=== PATIENT | male | born 1940 | race Caucasian/White ===

== ENCOUNTER → 2017-01-26 | Outpatient (REF) | payer SELFPAY | LOC: M LAB REF 17:13 | PROVIDERS: ATTEND Internal Medicine Nephrology | DX: E03.9 Hypothyroidism, unspecified (principal); E11.22 Type 2 diabetes mellitus with diabetic chronic kidney disease; I10 Essential (primary) hypertension ==

== ENCOUNTER → 2018-11-23 | Outpatient (REF) | payer SELFPAY | LOC: M LAB REF 17:22 | PROVIDERS: ATTEND Internal Medicine Nephrology | DX: E03.9 Hypothyroidism, unspecified (principal); I10 Essential (primary) hypertension; E11.22 Type 2 diabetes mellitus with diabetic chronic kidney disease ==

== ENCOUNTER → 2019-05-27 | Outpatient (REF) | payer SELFPAY | LOC: M LAB REF 16:35 | PROVIDERS: ATTEND Internal Medicine Nephrology | DX: E03.9 Hypothyroidism, unspecified (principal); I10 Essential (primary) hypertension; E11.22 Type 2 diabetes mellitus with diabetic chronic kidney disease ==

== ENCOUNTER → 2019-07-29 | Outpatient (REF) | payer SELFPAY | LOC: M LAB REF 17:01 | PROVIDERS: ATTEND Internal Medicine Nephrology | DX: E03.9 Hypothyroidism, unspecified (principal); I10 Essential (primary) hypertension; E11.22 Type 2 diabetes mellitus with diabetic chronic kidney disease ==

== ENCOUNTER 2019-12-13 16:52 | Emergency (ER) | payer SELFPAY ==
[~2019-12-13] VITALS: Ht 177.8 cm; Wt 102.6 kg
[2019-12-13] MEDS ORDERED: INSUDET SC (17:22)
[2019-12-13] MEDS ORDERED: NOVOINJ SC (17:22)
[2019-12-13] MEDS ORDERED: CALC1CAP31 (17:22)
[2019-12-13] MEDS ORDERED: ASPI81CH33 PO (17:22)
[2019-12-13] MEDS ORDERED: LEVO175T2 PO (17:22)
[2019-12-13] MEDS ORDERED: TORS100T PO (17:22)
[2019-12-13] MEDS ORDERED: GLIP5TAB20 PO (17:22)
[2019-12-13] MEDS ORDERED: ALLO10TA PO (17:22)
[2019-12-13] MEDS ORDERED: MINO2.5T PO (17:22)
[2019-12-13 18:19] LABS: BASO % 0.2 % (0.0-1.0); EOS # 0.5 10^3/uL (0.0-0.5); EOS % 6.1 % (0.0-3.0); HEMATOCRIT 40.4 % (42.0-52.0); HEMOGLOBIN 13.3 g/dl (13.5-17.5); LYMPH # 1.6 10^3/uL (1.5-5.0); LYMPH % 17.8 % (24.0-44.0); MEAN CORPUSCULAR HEMOGLOBIN 29.1 pg (27.0-33.0); MEAN CORPUSCULAR HGB CONC 32.9 g/dl (32.0-36.5); MEAN CORPUSCULAR VOLUME 88.4 fl (80.0-96.0); MONO # 0.6 10^3/uL (0.0-0.8); MONO % 6.3 % (0.0-5.0); NEUTROPHILS # 6.2 10^3/uL (1.5-8.5); NEUTROPHILS % 69.3 % (36.0-66.0); PLATELET COUNT, AUTOMATED 283 10^3/uL (150-450); RED BLOOD COUNT 4.57 10^6/uL (4.30-6.10); WHITE BLOOD COUNT 8.9 10^3/uL (4.0-10.0)
[2019-12-13 18:30] LABS: C REACTIVE PROTEIN QUANTITATIV 2.14 MG/DL (0.00-0.30); CALCIUM LEVEL 9.6 MG/DL (8.8-10.2); CREATININE FOR GFR 3.64 MG/DL (0.70-1.30); GLOMERULAR FILTRATION RATE 17.4 (>42); POTASSIUM SERUM 4.6 MEQ/L (3.5-5.1)
--- NOTE | 2019-12-13 18:33 | REP ---
Clinical: Swelling. Decreased range of motion. Technique: AP, lateral, bilateral oblique views of the left elbow. Findings: Significant, primarily posterior soft tissue swelling suggesting bursitis. Calcification of the tendinous insertion on the posterior aspect of the ulna suggest chronic tendinopathy. No acute fracture or dislocation identified. Impression: Soft tissue swelling suggesting bursitis. No acute fracture or dislocation. Electronically Signed by Len Gilbert MD 12/13/2019 06:25 P
[2019-12-13 18:40] LABS: ERYTHROCYTE SEDIMENTATION RATE 72 mm/hr (0-20)
--- NOTE | 2019-12-13 19:47 | REPVR ---
PROCEDURE INFORMATION: Exam: US Duplex Left Upper Extremity Veins, Limited Exam date and time: 12/13/2019 7:34 PM Age: 79 years old Clinical indication: Edema, localized; Upper extremity, left; Additional info: Lue swelling, R/O dvt TECHNIQUE: Imaging protocol: Real-time Duplex ultrasound of the Left Upper Extremity with 2-D rincon scale, color Doppler flow and spectral waveform analysis with image documentation. Limited exam focused on the left upper extremity veins. COMPARISON: No relevant prior studies available. FINDINGS: Left deep veins: Internal jugular, subclavian, axillary and brachial veins patent without thrombus. Normal compressibility, augmentation response and/or Doppler waveforms. Left superficial veins: Visualized cephalic and basilic veins patent without thrombus. Soft tissues: Subcutaneous edema. IMPRESSION: No sonographic evidence of deep vein thrombosis. Electronically signed by: Bharat Haro On 12/13/2019 19:47:07 PM
[2019-12-13 21:08] VITALS: BP 158/92
== END 2019-12-13 21:14 | disposition home or self-care (01) ==
LOC: M ED 16:52
DX: M70.22 Olecranon bursitis, left elbow (principal); S40.022A Contusion of left upper arm, initial encounter; N18.9 Chronic kidney disease, unspecified; X58.XXXA Exposure to other specified factors, initial encounter; Y92.9 Unspecified place or not applicable; Y93.9 Activity, unspecified; Y99.9 Unspecified external cause status; E11.40 Type 2 diabetes mellitus with diabetic neuropathy, unspecified; I10 Essential (primary) hypertension; Z86.73 Personal history of transient ischemic attack (TIA), and cerebral infarction without residual deficits; E03.9 Hypothyroidism, unspecified; M10.9 Gout, unspecified; Z99.89 Dependence on other enabling machines and devices; Z79.82 Long term (current) use of aspirin; Z79.4 Long term (current) use of insulin; Z79.899 Other long term (current) drug therapy

== ENCOUNTER → 2020-02-18 | Outpatient (REF) | payer SELFPAY ==
[~2020-02-18] MED LIST: ALLO10TA PO; ASPI81CH33 PO; CALC1CAP31; GLIP5TAB20 PO; INSUDET SC; LEVO175T2 PO; MINO2.5T PO; NOVOINJ SC; TORS100T PO
== END ==
LOC: M LAB REF 19:03
PROVIDERS: ATTEND Internal Medicine Nephrology
DX: E03.9 Hypothyroidism, unspecified (principal); I12.9 Hypertensive chronic kidney disease with stage 1 through stage 4 chronic kidney disease, or unspecified chronic kidney disease; E11.22 Type 2 diabetes mellitus with diabetic chronic kidney disease; N18.9 Chronic kidney disease, unspecified

== ENCOUNTER → 2020-05-01 | Outpatient (CLI) | payer SELFPAY ==
--- NOTE | 2020-05-01 15:20 | REP ---
INDICATION: CHEST PAIN ON BREATHING. COMPARISON: No comparison study. TECHNIQUE: Two views.. FINDINGS: There is a coarse linear opacity in the left base consistent with platelike atelectasis. The lungs are otherwise well inflated and clear. Mild cardiomegaly is observed. The thoracic aorta is tortuous. Pleural angles are sharp. No acute bony abnormality. IMPRESSION: Coarse linear platelike atelectasis left base laterally. Tortuous thoracic aorta. Otherwise no acute disease.. <Electronically signed by Wood Robles > 05/01/20 0125
== END ==
LOC: M RAD 13:31
PROVIDERS: ATTEND Internal Medicine Nephrology
DX: R07.1 Chest pain on breathing (principal); J98.11 Atelectasis

== ENCOUNTER → 2020-09-24 | Outpatient (REF) | payer SELFPAY | LOC: M LAB REF 16:55 | PROVIDERS: ATTEND Internal Medicine Nephrology | DX: E03.9 Hypothyroidism, unspecified (principal); I10 Essential (primary) hypertension; E11.22 Type 2 diabetes mellitus with diabetic chronic kidney disease ==

== ENCOUNTER 2020-11-01 09:22 | Inpatient (IN) | payer SELFPAY ==
[2020-11-01] VITALS (8 sets, daily range): BP systolic 105–189; BP diastolic 52–94; O2SAT 94
[~2020-11-01] VITALS: Ht 180.3 cm; Wt 99.4 kg
[~2020-11-01 09:22] MED LIST changes: -CALC1CAP31; +CALC1CAP31 PO; +ENOXAPARIN 60MG/0.6ML SYRINGE (J1650 PER 10MG) SC SCH
[2020-11-01] MEDS ORDERED: AZITHROMYCIN INJ 500 MG, VIAL MATE ADAPTER 1 EACH in NS 250 ML IV ONE (10:10)
[2020-11-01] MEDS ORDERED: cefTRIAXone SOD 1 GM in D5W MINI-BAG PLUS 50 ML IV ONE (10:10)
--- NOTE | 2020-11-01 10:18 | REP ---
INDICATION: DYSPNEA/COUGH. COMPARISON: 05/01/2020. TECHNIQUE: Single portable AP view of the chest was performed. FINDINGS: There are bilateral infiltrates, with consolidative opacities peripherally in the right upper lobe and in the left lung base.The heart is enlarged. The mediastinal silhouette is unremarkable except for some mild calcification of the thoracic aorta. There may be a small left pleural effusion. IMPRESSION: Peripheral consolidative infiltrates in the right upper and left lower lung zones. Possible small left effusion. Cardiomegaly. <Electronically signed by Jamal Jackson > 11/01/20 [id number]
[2020-11-01 10:37] LABS: BASO % 0.1 % (0.0-1.0); EOS % 0.1 % (0.0-3.0); HEMATOCRIT 35.3 % (42.0-52.0); HEMOGLOBIN 11.6 g/dl (13.5-17.5); LYMPH # 0.8 10^3/uL (1.5-5.0); LYMPH % 8.7 % (24.0-44.0); MEAN CORPUSCULAR HEMOGLOBIN 29.4 pg (27.0-33.0); MEAN CORPUSCULAR HGB CONC 32.9 g/dl (32.0-36.5); MEAN CORPUSCULAR VOLUME 89.6 fl (80.0-96.0); MONO # 0.5 10^3/uL (0.0-0.8); MONO % 5.5 % (2.0-8.0); NEUTROPHILS # 7.5 10^3/uL (1.5-8.5); NEUTROPHILS % 84.9 % (36.0-66.0); PLATELET COUNT, AUTOMATED 248 10^3/uL (150-450); RED BLOOD COUNT 3.94 10^6/uL (4.30-6.10); WHITE BLOOD COUNT 8.9 10^3/uL (4.0-10.0)
[2020-11-01] MEDS ORDERED: ZYLO300T6 PO (10:44)
[2020-11-01 10:47] LABS: INR 1.04; PROTHROMBIN TIME 13.8 SECONDS (12.5-14.3)
[2020-11-01 10:48] LABS: PARTIAL THROMBOPLASTIN TIME 46.8 SECONDS (24.2-38.5)
[2020-11-01 10:51] LABS: D-DIMER QUANT 2605.06 ng/ml (<500)
[2020-11-01 11:20] LABS: ALBUMIN 2.5 GM/DL (3.2-5.2); ALT/SGPT 65 U/L (12-78); BILIRUBIN,DIRECT < 0.1 MG/DL (0.0-0.2); BILIRUBIN,TOTAL 0.3 MG/DL (0.2-1.0); BLOOD UREA NITROGEN 85 MG/DL (7-18); CALCIUM LEVEL 8.8 MG/DL (8.8-10.2); CARBON DIOXIDE LEVEL 25 MEQ/L (21-32); CHLORIDE LEVEL 102 MEQ/L (98-107); CREATININE FOR GFR 6.91 MG/DL (0.70-1.30); FERRITIN 1568 NG/ML (26-388); GLOMERULAR FILTRATION RATE 8.3 (>42); GLUCOSE, FASTING 58 MG/DL (70-100); LDH LACTATE DEHYDROGENASE 358 U/L (87-241); MAGNESIUM LEVEL 3.1 MG/DL (1.8-2.4); NT-PRO BNP 6423 PG/ML (<450); POTASSIUM SERUM 4.2 MEQ/L (3.5-5.1); SODIUM LEVEL 134 MEQ/L (136-145); TOTAL PROTEIN 7.4 GM/DL (6.4-8.2)
[2020-11-01] MEDS ORDERED: NS 1,000 ML IV SCH (11:25)
[2020-11-01] MEDS ORDERED: DEXTROSE 50% 50 ML SYRINGE IV PRN (11:40)
[2020-11-01] MEDS ORDERED: GLUCOSE 4GM CHEW TABLET PO PRN (11:40)
[2020-11-01] MEDS ORDERED: GLUCAGON INJ 1MG VIAL SC PRN (11:40)
[2020-11-01] MEDS ORDERED: MAGN500T12 PO (11:44)
[2020-11-01] MEDS: ASPIRIN 81MG ENTERIC TABLET PO SCH (11:59)
[2020-11-01] MEDS: dexameTHASONE 4 MG/ML 1ML VIAL (J1100 PER 1MG) IV SCH (11:59)
[2020-11-01] MEDS: HumaLOG INSULIN (NovoLOG) PER UNIT SC SCH ×3 (12:00→20:19)
--- NOTE | 2020-11-01 13:44 | HPEPDOC ---
[facility] Medical History & Physical Date of Admission November 01, 2020 Date of Service: November 01, 2020 History and Physical CHIEF COMPLAINT: shortness of breath HISTORY OF PRESENT ILLNESS: 80 year old male for two week history of general malaise and myalgias. Over the last week he has developed progressively worsening shortness of breath. Denies chest pain, abdominal pain, N/V/D. Past medical history as per patient diabetes, and chronic kidney disease. 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 REVIEW OF SYSTEMS: Negative except as per HPI. HOME MEDICATIONS: Please see below. PHYSICAL EXAMINATION: VITAL SIGNS: See below General: NAD, lying comfortably in bed HEENT: NC/AT, EOMI Lungs: diminished breath sounds b/l, difficult to auscultate Heart: +S1S2 Abd: soft, NT, +BS Ext: +1 peripheral edema LABORATORY DATA: See below. MICROBIOLOGY: Please see below. A/P: 80 yo male presents for one week history of worsening shortness of breath, found to be COVID+, admitted for acute hypoxic respiratory failure with acute/chronic kidney disease. #COVID/acute hypoxic respiratory failure - supplemental oxygen - dexamethasone, remdesevir - intermediate therapeutic anticoagulation dosing - adjusted to heparin - possible secondary bacterial infection - ceftriaxone/azithromycin, check MRSA screen/procal - d/w pulm - assistance appreciated - echocardiogram #SUNITA/CKD - discussed with nephrology - established patient with CKD IV-V - lasix 80 IV x 1 #DM - insulin sliding scale #DVT prophylaxis - as per above - intermediate therapeutic anti-coagulation Dispo: admitted to ICU, attempted to call his x3, no answer/voicemail was full. Vital Signs Vital Signs Date Time Temp Pulse Resp B/P (MAP) Pulse Ox O2 Delivery O2 Flow Rate FiO2 11/01/20 13:00 98.3 77 18 127/65 (85) 96 High Flow Cannula 11/01/20 10:28 40.0 100 Laboratory Data Labs 24H Laboratory Tests 2 11/01/20 09:56: POC pH (Misc Panel) 7.342L, POC Base Excess (Misc Panel) -4.0L, POC Saturated Percent O2 (Misc) 82L, POC pO2 (Misc Panel) 49.0*L, POC pCO2 (Misc Panel) 40.6, POC HCO3 (Misc Panel) 22.0, POC Total CO2 (Misc Panel) 23.0 11/01/20 10:23: Immature Granulocyte % (Auto) 0.7, Neutrophils (%) (Auto) 84.9H, Lymphocytes (%) (Auto) 8.7L, Monocytes (%) (Auto) 5.5, Eosinophils (%) (Auto) 0.1, Basophils (%) (Auto) 0.1, Neutrophils # (Auto) 7.5, Lymphocytes # (Auto) 0.8L, Monocytes # (Auto) 0.5, Eosinophils # (Auto) 0.0, Basophils # (Auto) 0.0, Nucleated Red Blood Cells % (auto) 0.0, Prothrombin Time 13.8, Prothromb Time International Ratio 1.04, Activated Partial Thromboplast Time 46.8H, Fibrinogen 830H, D-Dimer, Quantitative 2605.06H, Anion Gap 7L, Glomerular Filtration Rate 8.3L, Lactic Acid Level 0.6, Calcium Level 8.8, Magnesium Level 3.1H, Ferritin 1568H, Total Bilirubin 0.3, Direct Bilirubin < 0.1, Aspartate Amino Transf (AST/SGOT) 72H, Alanine Aminotransferase (ALT/SGPT) 65, Alkaline Phosphatase 54, Lactate Dehydrogenase 358H, C-Reactive Protein, Quantitative 24.80H, YZ-Waj-J-Type Natriuretic Peptide 6423H, Total Protein 7.4, Albumin 2.5L, Albumin/Globulin Ratio 0.5, Thyroid Stimulating Hormone (TSH) 3.610 11/01/20 10:28: POC Total CO2 (Misc Panel) 25.0, POC Glucose (Misc Panel) 59L, POC Sodium (Misc Panel) 134L, POC Potassium (Misc Panel) 4.1, POC Chloride (Misc Panel) 101, POC Blood Urea Nitrogen (Misc Panel 86H, POC Ionized Calcium (Misc Panel) 4.6, POC Creatinine (Misc Panel) 8.0H, POC Hematocrit (Misc Panel) 35.0L 11/01/20 10:47: POC Troponin I (Misc) 0.19H 11/01/20 12:03: Bedside Glucose (Misc Panel) 53L 11/01/20 12:25: Bedside Glucose (Misc Panel) 56L 11/01/20 12:31: Bedside Glucose (Misc Panel) 58L 11/01/20 13:11: Bedside Glucose (Misc Panel) 95 CBC/BMP Laboratory Tests 11/01/20 10:23 Microbiology Microbiology 11/01/20 Blood Culture, Received Pending 11/01/20 Blood Culture, Received Pending 11/01/20 Respiratory Virus Panel (PCR) ([facility]) - Final, Complete SARS-CoV-2 (COVID 19) Human Rhinovirus/Enterovirus Home Medications Scheduled Allopurinol (Zyloprim) 300 Mg Tablet, 300 MG PO DAILY Aspirin (Aspirin) 81 Mg Tab.chew, 81 MG PO DAILY Calcitriol (Calcitriol) 0.25 Mcg Capsule, 0.25 MCG PO DAILY Glipizide (Glipizide ER) 5 Mg Tab.er.24, 5 MG PO DAILY Insulin Aspart (Novolog) 100 Unit/1 Ml Cartridge, 20 UNITS SC TID Insulin Detemir (Levemir) 100 Unit/1 Ml Vial, 60 UNITS SC QPM Levothyroxine Sodium (Levothyroxine Sodium) 175 Mcg Tablet, 175 MCG PO DAILY Magnesium Oxide (Magnesium Oxide) 500 Mg Tablet, 500 MG PO BID Minoxidil (Minoxidil) 2.5 Mg Tablet, 2.5 MG PO BID Torsemide (Torsemide) 100 Mg Tablet, 150 MG PO DAILY Allergies Coded Allergies: No Known Allergies (Unverified , 12/13/19) A-FIB/CHADSVASC A-FIB History Current/History of A-Fib/PAF?: No RENEE ALLEN MD November 01, 2020 13:44
[2020-11-01] MEDS: LEVOTHYROXINE 25MCG TABLET (0.025MG) PO SCH (14:03)
[2020-11-01] MEDS: LEVOTHYROXINE 150MCG TABLET (0.15MG) PO SCH (14:03)
[2020-11-01] MEDS: CALCITRIOL 0.25 MCG CAP (S0169) PO SCH (14:36)
[2020-11-01 14:52] LABS: APPEARANCE, URINE HAZY (CLEAR); BACTERIA, URINE AUTO 1+ (NEGATIVE); BILIRUBIN, URINE AUTO NEGATIVE (NEGATIVE); BLOOD, URINE BLOOD 2+ (NEGATIVE); COLOR, URINE YELLOW (YELLOW); GLUCOSE, URINE (UA) AUTO 1+ mg/dL (NEGATIVE); KETONE, URINE AUTO TRACE mg/dL (NEGATIVE); LEUKOCYTE ESTERASE, URINE AUTO NEGATIVE (NEGATIVE); NITRITE, URINE AUTO NEGATIVE (NEGATIVE); PROTEIN, URINE AUTO 3+ mg/dL (NEGATIVE); RBC, URINE AUTO 137 /HPF (0-3); SPECIFIC GRAVITY URINE AUTO 1.017 (1.002-1.035); SQUAMOUS EPITHELIAL CELL UR AU 0 /HPF (0-6); UROBILINOGEN, URINE AUTO 0.2 mg/dL (0.0-2.0); WBC, URINE AUTO 4 /HPF (0-3)
[2020-11-01] MEDS ORDERED: FUROSEMIDE 100MG/10ML VIAL (J1940) IV ONE (15:30)
[2020-11-01] MEDS ORDERED: REMDESIVIR 200 MG in NS 250 ML IV ONE (16:00)
--- NOTE | 2020-11-01 17:27 | CR ---
CRITICAL CARE CONSULTATION DATE: 11/01/2020 CHIEF COMPLAINT: Shortness of breath. HISTORY OF PRESENT ILLNESS: The history was obtained from the patient and from the chart for collateral as he was tachypneic and on BIPAP, somewhat difficult to provide a full history. The patient is a 80-year-old male with a past medical history of diabetes, chronic kidney disease, and gout who presented with complaints of worsening shortness of breath. The patient reported over the past 2 weeks he was having symptoms of myalgias and general malaise. Over the past week however he started developing worsening shortness of breath as well as some occasional cough with scant mucous production. He presented to the E.D. because of his worsening shortness of breath and dyspnea. He had denied any significant chest pain except occasionally when he was coughing. He had denied any significant abdominal pain. No nausea or vomiting. He does have a history of some lower extremity edema and he is on a diuretic as an outpatient. He does report for the past week that he has noticed less urine output from usual. He had been drinking plenty of water he states, as he generally does like to drink water and he states quite a bit in the evening. He also had been taking wqkw-mxb-wuacwwy medications given his malaise and myalgias. He was taking Tylenol and Ibuprofen which he reports as two pills at a time and every 6 hours for the last week or two. The patient reports generally that he is compliant with his medications, although he was unable to clearly remember which medications he takes. PAST MEDICAL/SURGICAL HISTORY: The patient's past medical/surgical history is significant for: 1. Diabetes. 2. 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 Sprague. 3. Hypothyroidism. FAMILY HISTORY: Noncontributory. SOCIAL HISTORY: The patient denies a history of tobacco use. No significant alcohol use or illicit drug use. He is a [employer]. MEDICATIONS: 1. Allopurinol. 2. Aspirin. 3. Calcitriol. 4. Glipizide. 5. NovoLog. 6. Levemir. 7. Levothyroxine. 8. Magnesium Oxide. 9. Minoxidil. 10. Torsemide. ALLERGIES: No known drug allergies. PHYSICAL EXAMINATION: VITAL SIGNS: Temperature 99.1, pulse 90, respirations 24, blood pressure was 170/76, O2 sat was 93% on Vapotherm at 40 liters a minute and 100% FiO2. GENERAL APPEARANCE: The patient is an obese male, is lying in the bed, appears somewhat drowsy but is arousable and answering questions appropriately. He is alert and oriented x2. He does have some tachypnea and is using some accessory muscles for respiration. HEENT: Normocephalic and atraumatic. Moist mucous membranes noted. NECK: Supple. Trachea is midline. Positive jugular venous distention. CARDIAC: Somewhat distant heart sounds, regular rate and rhythm. Normal S1, S2, unable to clearly auscultate any murmurs. LUNGS: Diminished breath sounds bilaterally with a few crackles on the left base. ABDOMEN: Obese, soft, nondistended with mild tenderness in the suprapubic region. EXTREMITIES: There is +1 pitting lower extremity edema with the right leg slightly more than the left which he states is chronic. LABORATORY DATA: WBC 8.9, hemoglobin 11.6, platelets are 218. Chemistries - sodium is 134, potassium 4.2, chloride is 102, bicarbonate is 25, BUN 85, creatinine 6.91, glucose is 58, lactic acid was 0.6, magnesium is 2.1. AST ALT 72 and 65, alkaline phosphatase is 54, ferratin is 1658. LDH is 358, CRP is 24.8, BNP was 6423. albumin is 2.5. INR was 1.04, D-dimer is 2605. Troponin is 0.19. ABG: PH 7.342, pco2 of 40.6, pO2 of 48. Microbiology blood culture is pending. Respiratory virus panel positive for COVID-19 and human rhinovirus/enterovirus. IMAGING DATA: Chest x-ray on admission showed a right upper lobe opacity and a left lower lobe opacity with a very trace small trace left pleural effusion. There are also some increased interstitial markings noted mostly on the rest of the right lung. There is cardiomegaly. ASSESSMENT AND PLAN: Mr. June is a 80-year-old male with a past medical history of diabetes, hypothyroidism, chronic kidney disease, who presented with complaints of worsening shortness of breath and dyspnea on exertion. The patient was found on admission to be hypoxemic respiratory failure and was COVID-19 as well as human rhinovirus/enterovirus positive. The patient was placed on Vapotherm and was requiring 100% FiO2 at 40 liters a minute to maintain his oxygenation. He was also found to have acute kidney injury on his baseline chronic kidney disease. Given his oxygen requirements, he was transferred to the ICU for further evaluation. He did receive broad spectrum antibiotics initially in the E.D. and was initially started on IV fluids. With his assessment however, particularly with the lower extremity edema as well as with elevated BNP, and his significant hypoxic respiratory failure, we discontinued his IV fluids. 1. Acute hypoxemic respiratory failure in the setting of COVID-19 pneumonia with possible superimposed bacterial pneumonia. We will start the patient on BIPAP to help with oxygenation as well as to help with likely some degree of atelectasis. We will also transition between Vapotherm and BIPAP. He is on settings of 11/7 and on the BIPAP was able to wean down to 75% FiO2. We will continue to wean down FiO2 as tolerated to maintain 02 sat above 90%. We will continue the patient on Dexamethasone and Remdesivir for his COVID-19 pneumonia. We will also continue to monitor his inflammatory markers and consider Tocilizumab if he does have evidence of cytokine storm. We will continue with broad spectrum antibiotics for possible superimposed community acquired pneumonia with Ceftriaxone and Azithromycin and will follow up results of his blood cultures. Given his elevated D-dimer and pro inflammatory state, we will continue with weight based prophylaxis as he is also obese, with Heparin but with a slightly higher dose of 75,000 units subcutaneously q. 8 hours. 2. Uqfqi-fg-avcmkhj renal failure the patient's baseline creatinine was 4 and with a baseline GFR of 15. There had been discussions previously with his case monitor about the potential need for dialysis in the near future, however the patient had been resistant about starting dialysis as he did not have insurance. When questioned today he did state that he would be willing to undergo hemodialysis if needed with worsening renal failure. We will place a Rivera catheter and monitor his in's and out's. If he does have some urine output, would consider giving Lasix 80 mg IV after discussion with Nephrology and continue to monitor his renal output and his in's and out's. The patient currently does not have acute indication for dialysis. He is not significantly acidotic and he does not have any significant electrolyte abnormalities including hyperkalemia. He does however have significant hypoxia and if there is concern for worsening fluid overload with decreased urine output and contributing to his hypoxia, then he may potentially need dialysis at that time for fluid removal. We will continue to follow up his renal function and electrolytes. Appreciate Nephrology consult and recommendations. 3. Diabetes - The patient was hypoglycemic. He did receive glucose. We will continue to monitor his fingerstick glucose checks and we will hold his long acting insulin as he will be n.p.o. given his severe hypoxemic respiratory failure at this time. 4. The patient had mildly elevated troponins on admission, likely in the setting of some demand ischemia. We will continue to trend troponins and monitor his EKG. DVT prophylaxis Heparin. Code Status full code. Total critical care time spent not including procedures approximately one hour and 40 minutes. MTDD
[2020-11-01] MEDS ORDERED: SODIUM CHLORIDE 0.9% INJ 10 ML SYR IV ONE (18:00)
[2020-11-01 18:31] LABS: CALCIUM LEVEL 8.7 MG/DL (8.8-10.2); CREATININE FOR GFR 7.06 MG/DL (0.70-1.30); GLOMERULAR FILTRATION RATE 8.1 (>42); POTASSIUM SERUM 4.9 MEQ/L (3.5-5.1)
[2020-11-01 18:34] LABS: TROPONIN I 0.33 NG/ML (< 0.10)
[2020-11-01 19:44] LABS: CHOLESTEROL RISK RATIO 4.657 (<5)
[2020-11-01 19:55] LABS: HEMOGLOBIN A1c 6.1 %
[2020-11-01] MEDS: HEPARIN SOD (PORCINE) 5000UNITS/ML 1ML VIAL/SYRINGE SQ SCH (20:30)
[2020-11-01] MEDS ORDERED: HumaLOG INSULIN (NovoLOG) PER UNIT SC SCH (21:00)
[2020-11-01] MEDS ORDERED: LEVEMIR (INSULIN DETEMIR) 1 UNITS/0.01ML SC SCH (21:00)
[2020-11-02] VITALS: BP 115/56
[2020-11-02] MEDS: HumaLOG INSULIN (NovoLOG) PER UNIT SC SCH ×2 (00:37→05:51)
[2020-11-02 02:00] VITALS: BP 149/74
[2020-11-02 04:00] VITALS: BP 130/64
[2020-11-02 05:16] LABS: BASO % 0.1 % (0.0-1.0); HEMATOCRIT 35.2 % (42.0-52.0); HEMOGLOBIN 11.4 g/dl (13.5-17.5); LYMPH # 0.7 10^3/uL (1.5-5.0); LYMPH % 7.9 % (24.0-44.0); MEAN CORPUSCULAR HEMOGLOBIN 29.3 pg (27.0-33.0); MEAN CORPUSCULAR HGB CONC 32.4 g/dl (32.0-36.5); MEAN CORPUSCULAR VOLUME 90.5 fl (80.0-96.0); MONO # 0.3 10^3/uL (0.0-0.8); MONO % 3.8 % (2.0-8.0); NEUTROPHILS # 7.4 10^3/uL (1.5-8.5); NEUTROPHILS % 87.5 % (36.0-66.0); PLATELET COUNT, AUTOMATED 255 10^3/uL (150-450); RED BLOOD COUNT 3.89 10^6/uL (4.30-6.10); WHITE BLOOD COUNT 8.5 10^3/uL (4.0-10.0)
[2020-11-02 05:30] LABS: D-DIMER QUANT 1994.52 ng/ml (<500)
[2020-11-02] MEDS: LEVOTHYROXINE 25MCG TABLET (0.025MG) PO SCH (05:30)
[2020-11-02] MEDS: LEVOTHYROXINE 150MCG TABLET (0.15MG) PO SCH (05:30)
[2020-11-02 05:58] LABS: ALBUMIN 2.2 GM/DL (3.2-5.2); BILIRUBIN,TOTAL 0.2 MG/DL (0.2-1.0); C REACTIVE PROTEIN QUANTITATIV 31.6 MG/DL (0.00-0.30); CALCIUM LEVEL 8.2 MG/DL (8.8-10.2); CREATININE FOR GFR 7.42 MG/DL (0.70-1.30); GLOMERULAR FILTRATION RATE 7.6 (>42); MAGNESIUM LEVEL 3.1 MG/DL (1.8-2.4); POTASSIUM SERUM 4.9 MEQ/L (3.5-5.1); TOTAL PROTEIN 5.9 GM/DL (6.4-8.2)
[2020-11-02 06:00] VITALS: BP 163/79
[2020-11-02] MEDS: HEPARIN SOD (PORCINE) 5000UNITS/ML 1ML VIAL/SYRINGE SQ SCH (06:00)
[2020-11-02 08:00] VITALS: BP 148/70
[2020-11-02 08:43] LABS: TROPONIN I 0.22 NG/ML (< 0.10)
[2020-11-02] MEDS: CALCITRIOL 0.25 MCG CAP (S0169) PO SCH (08:55)
[2020-11-02] MEDS: ASPIRIN 81MG ENTERIC TABLET PO SCH (08:55)
[2020-11-02] MEDS: dexameTHASONE 4 MG/ML 1ML VIAL (J1100 PER 1MG) IV SCH (08:55)
[2020-11-02] MEDS ORDERED: SODIUM BICARBONATE 325 MG TAB PO SCH (09:00)
[2020-11-02 10:00] VITALS: BP 163/77
[2020-11-02 10:14] LABS: HEPATITIS B SURFACE ANTIBODY NEGATIVE (POSITIVE)
[2020-11-02 10:42] LABS: HEPATITIS B SURFACE ANTIGEN NEGATIVE (NEGATIVE)
[2020-11-02 10:53] LABS: HEPATITIS B CORE ANTIBODY IGM NEGATIVE (NEGATIVE)
[2020-11-02] MEDS ORDERED: cefTRIAXone SOD 1 GM in D5W MINI-BAG PLUS 50 ML IV SCH (11:00)
[2020-11-02] MEDS ORDERED: AZITHROMYCIN INJ 500 MG, VIAL MATE ADAPTER 1 EACH in NS 250 ML IV SCH (12:00)
[2020-11-02] MEDS ORDERED: SCOPOLAMINE 1MG TRANSDERMAL PATCH TOP PRN (12:25)
[2020-11-02] MEDS ORDERED: MORPHINE 2 MG/ML 1ML VIAL (J2270) IV PRN (12:25)
--- NOTE | 2020-11-02 13:16 | ECGEPIP ---
[facility] - ED Test Date: 2020-11-01 Pat Name: BETTY GARDNER Department: Room: [place] [address] Gender: Male Director Dietetics Department: JIN : 1940 Requested By: Rizwana Bravo Order Number: [id number] Reading MD: Rizwana Bravo Measurements Intervals [place] Rate: 89 P: 3 KS: 178 QRS: 26 QRSD: 102 T: 64 QT: 364 QTc: 442 Interpretive Statements Normal sinus rhythm NSTTW abnormalities No prior Electronically Signed on 11-02-2020 13:16:25 EDT by Rizwana Bravo
--- NOTE | 2020-11-02 13:46 | IPNPDOC ---
Text Note Date of Service The patient was seen on 11/02/20. NOTE Subjective: Patient seen and examined at bedside. No acute overnight events reported. Patient voices no new medical complaints this morning. Later in the day there was extensive discussion with his family (adult son/daughter) regarding his CODE STATUS and goals of care. His family decided that the patient would prefer not to have dialysis and would want DNR/DNI status. His recently suffered a CVA and is unable to assist in decision making with his family. On further discussion, the family ultimately decided to make him comfort measures only. This was discussed extensively with the patient as well who also stated that he would not wish to have dialysis, would not want to be intubated or undergo cardiopulmonary resuscitation, and felt that withdrawal of care with comfort measures only was his desire. He repeatedly stated that he would defer decision making to his family. Although he was alert, awake and oriented to person, place, time and situation, there was some question regarding his ability to understand his decision, as such, his family was contacted to aid in his decision-making. Daughter Hyacinth acted as spokesperson for Mr. June's family. Patient has been made [employer], with hospice consultation. His family is hoping to be able to take him home. A/P: #COVID/acute hypoxic respiratory failure - patient is now [employer] - supplemental oxygen for comfort #SUNITA/CKD Dispo: Patient has been made [employer], pending hospice consultation. Addendum: PFS still working on options, complicated with lack of insurance and being COVID+. VS,Fishbone, I+O VS, Fishbone, I+O Laboratory Tests 11/01/20 17:59 11/02/20 05:04 Vital Signs Date Time Temp Pulse Resp B/P (MAP) Pulse Ox O2 Delivery O2 Flow Rate FiO2 11/02/20 10:00 79 163/77 (105) 95 HVNI-Vapotherm 40.0 100 11/02/20 08:00 98.8 21 I&O- Last 24 Hours up to 6 AM 11/02/20 06:00 Intake Total 695 ml Output Total 800 ml Balance -105 ml RENEE ALLEN MD November 02, 2020 13:46
--- NOTE | 2020-11-02 14:17 | CR ---
CONSULTATION DATE: 11/02/2020 REQUESTING PHYSICIAN: Philip Lyons MD CONSULTING PHYSICIAN: Jatin Foster M.D. REASON FOR CONSULTATION: Management of her acute renal failure superimposed on chronic kidney disease and management of volume status. CHIEF COMPLAINT: The patient presented to the hospital yesterday with progressive shortness of breath. HISTORY OF PRESENT ILLNESS: Mr. Bryan June is a 80-year-old male with past medical history of chronic kidney disease, stage V, baseline creatinine of 4, he follows up with Dr. Sprague as an outpatient, type 2 diabetic, other comorbidies as mentioned below. He presented to the hospital with 2 week history of progressive shortness of breath, generalized weakness, low-grade temperatures; and when he presented to the emergency room, the patient was found to have acute hypoxic respiratory failure secondary to COVID 19 and pneumonia. He was also found to have acute renal failure superimposed on chronic kidney disease. His creatinine on arrival was 6.9 with a BUN of 85. Nephrology service was called for further help in the management of this patient. I discussed the case with Dr. Jackie Hutchins with Dr. Philip Lyons yesterday. The patient's chart was electronic monitored by myself. Physical examination by the other physicians is seen. I did not personally see the patient because of COVID 19 isolation. PAST MEDICAL HISTORY: Past medical history of chronic kidney disease, stage V, baseline creatinine of 4, diabetes mellitus type 2, hypothyroidism. ALLERGIES: No known drug allergies. PAST SURGICAL HISTORY: No significant past surgical history. FAMILY HISTORY: No significant family history of end-stage renal disease requiring hemodialysis. SOCIAL HISTORY: The patient lives at home. No significant history of illicit drug abuse. REVIEW OF SYSTEMS: Constitutional: The patient reports feeling very weak and tried. Eyes: He denies any blurry vision, double vision. ENT: Denies any dysphagia or odynophagia. Cardiovascular: He reports no extremity edema. Respiratory: He reports progressive shortness of breath. Gastrointestinal (GI): He reports decreased appetite. Genitourinary (): He reports decreased urine output. Musculoskeletal: Reports muscle aches and pains. Skin: Denies any rashes or ulcers. Hematologic/oncologic: Denies any easy bleeding or bruising. All other review of systems is negative as per the patient's history of present illness in the chart. PHYSICAL EXAMINATION: Vital signs: Temperature is 99.2 degrees Fahrenheit, blood pressure 163/77, pulse is 79, respiratory rate of 21, saturating 95% on Vapotherm at 100% FiO2. Head and neck examination: Normocephalic, atraumatic. Neck is supple. He has mildly elevated jugular venous distention (JVD). Cardiovascular: S1, S2. 1+ edema of the bilateral lower extremities. Respiratory: Decreased breath sounds bilaterally at the bases. Abdomen: Soft. Positive bowel sounds. Musculoskeletal: No clubbing or cyanosis. Edema of the extremities as mentioned above. FACILITY MANAGER: Mild respiratory distress, otherwise the patient follows commands and moves extremities. LABORATORY REVIEWS: Complete blood count (CBC) showed a WBC of 0.5, hemoglobin of 11.4, platelets are 255. Urinalysis showed 3+ protein, 2+ blood. Basic metabolic panel (BMP) today morning showed sodium 137, potassium 4.9, chloride 105, bicarbonate 19, BUN 94, creatinine is 7.4. Glucose 145. Magnesium is 3.1. Ferritin is 1898. AST 62, ALT 58, alkaline phosphatase is 50. LDL is 378. Troponin is 0.22. BNP is 6645. MICROBIOLOGY: Human rhinovirus/enterovirus and COVID 19 are both positive. IMAGING: A chest x-ray done yesterday showed mild focal consolidative infiltration in the right upper and left lower lung zones. Possible left effusion and there was cardiomegaly. CURRENT INPATIENT MEDICATIONS: The patient's medications were all reviewed by myself. He is currently on IV ceftriaxone and azithromycin. He is on remdesivir 100 mg IV q 24 hours, aspirin 81 mg daily and calcitriol 0.25 mcg by mouth daily, dexamethasone 6 mg IV daily, Lasix 80 mg IV times one dose was given yesterday. He is on insulin, Levemir, 40 units subcutaneous tissues daily, Penicillin, lispro sliding scale, levothyroxine 150 mcg by mouth daily, sodium bicarbonate 325 mg by mouth twice a day. ASSESSMENT AND PLAN: 1. Acute renal failure secondary to chronic kidney disease, stage V. The patient is in renal failure. He has COVID 19 and rhinovirus infection with possible suppurative bacteria infection as well. His glomerular filtration rate (GFR) is less than 10. His BUN is rising. I advised hemodialysis. Pulmonary critical care team discussed the hemodialysis with a family member and they are reluctant to start the patient on dialysis because the patient did not wish to have dialysis ever in his life. The patient himself is undecided about hemodialysis. Anytime the family decides to start the patient on dialysis, he will need to get temporary non tunneled dialysis catheter. I would start the patient on continuous veno-venous hemodiafiltration (CVVHDF). Otherwise, I do not have much to offer to this patient, who already had baseline chronic kidney disease (CKD) V with a glomerular filtration rate (GFR) of around 15 and he was refusing dialysis as outpatient in nephrology clinic. 2. Acute decompensated congestive heart failure. It is secondary to acute renal failure. He was given a dose of IV Lasix. He did not respond much to the IV diuretic. If he agrees for dialysis, we would need to remove fluid with continuous veno-venous hemodiafiltration (CVVHDF). 3. Acute hypoxic respiratory failure secondary to COVID 19 pneumonia and human rhinovirus/enterovirus infection. The patient is on Decadron and remdesivir. He is also empirically being covered for bacterial infection with Rocephin and azithromycin. The patient rest of the management is as per pulmonary critical care service. 4. Secondary hyperparathyroidism. The patient continues to be on calcitriol 0.25 mcg by mouth daily. 5. Diabetes mellitus type 2. Insulin management is as per medical team. 6. Hypothyroidism. Okay to continue levothyroxine. 7. Metabolic acidosis. The patient has mild metabolic acidosis secondary to renal failure. Okay to continue sodium bicarbonate at this time. Thank you for involving me in the care of this patient. I shall be able to follow the patient along with you tomorrow morning.
[2020-11-02] MEDS ORDERED: REMDESIVIR 100 MG in NS 250 ML IV SCH (16:00)
[2020-11-02] MEDS ORDERED: SODIUM CHLORIDE 0.9% INJ 10 ML SYR IV SCH (17:00)
--- NOTE | 2020-11-02 18:04 | CCN ---
CRITICAL CARE NOTE DATE: 11/02/2020 SUBJECTIVE: Patient was seen and examined this morning during bedside rounds. Yesterday the patient was given Lasix to see if he would have improvement in his urine output and his renal function was continued to be monitored. He did have some slight increased urine output but overnight did have decreased urine output noted. He also had on labs worsening kidney function and metabolic acidosis in the setting of his renal failure. After discussion with Nephrology, the decision was made that given his history of CKD and with his worsening renal failure, that he would need hemodialysis likely with CVVHD. The patient yesterday had appeared agreeable to the possibility of hemodialysis if needed. In the past, however, when the subject was brought up with the patient with his outpatient door clamper, he had previously refused initiation of hemodialysis. Today after discussion with his daughter Hyacinth who cares for him in the home, he had stated that he would not want dialysis. The patient's daughter Hyacinth states that he would not have wanted to start dialysis as per his wishes prior to his acute illness. She also states that given some previous discussion that she suspected he would not want continued aggressive management including if needed endotracheal tube placement and mechanical ventilation. Patient this morning does appear somewhat drowsy but he is awake and answering questions appropriately. He is alert and oriented times three. When asked about his code status and dialysis, he states that he does understand that if he refuses dialysis there is a possibility that he will have worsening renal failure and may potentially go into cardiac arrest or respiratory arrest. He does understand that that is a possibility and he did mention that he would prefer to go home and not be on mechanical ventilation. OBJECTIVE: VITAL SIGNS: Temperature 98.5, pulse 77, respirations 21, blood pressure 153/79, O2 saturation 94% on BiPAP at 65% FiO2. Input 695. Output 575, an additional 225 mL output overnight. GENERAL: The patient is an obese male, is lying in bed. Appears somewhat drowsy but is awake and answering questions appropriately. He is alert and oriented times two to three. He does have some mild tachypnea. HEENT: Normocephalic, atraumatic. Moist mucous membranes. NECK: Supple. Trachea is midline. CARDIAC: Somewhat distant heart sounds, regular rate and rhythm, normal S1, S2, unable to clearly auscultate murmurs. LUNGS: Diminished breath sounds bilaterally w a few crackles, more on the left base. ABDOMEN: Obese, soft, nontender, nondistended. EXTREMITIES: There is no significant lower extremity edema noted bilaterally. LABS: WBC 8.5, hemoglobin 11.4, platelets 255. Chemistry: Sodium is 137, potassium 4.9, chloride 105, bicarb 19, BUN 94, creatinine 7.42, glucose 145, calcium 8.2, magnesium 3.1, ferritin is 1898, AST 62, ALT 50, LDH is 378, troponin increased to 0.33. CRP 31.6, albumin 2.2. Procalcitonin is pending. ASSESSMENT AND PLAN: Mr. June is a 80-year-old male with a past medical history of diabetes, hyperthyroidism, CKD, who presented with worsening shortness of breath and dyspnea on exertion. The patient was also found to have acute hypoxemic respiratory failure on admission and was COVID-19 positive. The patient was also positive for human rhinovirus/enterovirus. His initial imaging did show evidence of multifocal pneumonia possibly secondary to COVID-19 pneumonia as well as a superimposed bacterial pneumonia. He was also found to have SUNITA on CKD possibly in the setting of ATN given his use of NSAIDs as an outpatient with his history of chronic renal failure and diuretic use. This morning the patient's renal function does appear to be worsening. He is also noted to have worsening acidosis in the setting of his renal failure. We had discussed with Nephrology about initiation of hemodialysis with CVVHD. However, after discussion with the patient and his family with his six children, the decision was made that the patient would not have wanted hemodialysis as per his previous wishes prior to his hospitalization. His children and the patient also discussed his further goals of care and the decision was made that he would not want aggressive care at this time including any intubation or resuscitation. The patient was therefore made DNR/DNI and after further discussion, the decision was also made for comfort measures only with the plan for being home with hospice if possible. Acute hypoxemic respiratory failure in the setting of COVID-19 pneumonia with a possible superimposed bacterial pneumonia. We will discontinue the patient's BiPAP at this time as he is comfort measures only. We will give him oxygen supplemental oxygen as needed. We will discontinue his other medications including the dexamethasone, Remdesivir and antibiotics. We will discontinue other medications except for those for comfort including medications for pain and anxiety as well as for nausea and vomiting. We will place a PFS and hospice consult for the patient. DVT prophylaxis was Heparin, now we will discontinue. CODE STATUS: DO NOT RESUSCITATE/DO NOT INTUBATE, COMFORT MEASURES ONLY. Total critical care time spent not including any procedures approximately 45 minutes with an extensive discussion with the patient's daughters. Please do not hesitate to call if any further questions or concerns.
[2020-11-02] MEDS: LORazepam 2 MG/ML VIAL IV PRN (22:04)
[2020-11-02] MEDS: MORPHINE 4 MG/ML 1ML VIAL/SYRINGE (J2270) IV PRN (22:06)
[2020-11-03] MEDS: MORPHINE 4 MG/ML 1ML VIAL/SYRINGE (J2270) IV PRN ×5 (07:34→23:28)
[2020-11-03] MEDS ORDERED: LORazepam 2 MG/ML VIAL As Ordered ONE ×4 (12:14→23:22)
[2020-11-03] MEDS: LORazepam 2 MG/ML VIAL IV PRN ×4 (12:19→23:28)
--- NOTE | 2020-11-04 16:03 | DS.PDOC ---
Discharge Summary General Date of Admission November 01, 2020 at 11:25 Date of Discharge 11/04/20 Discharge Summary PROCEDURES PERFORMED DURING STAY: [None]. I am the attending on record for Mr June on the date of his . I did not see Mr Wilkinson on this day as he overnight, the certificate was completed by Dr Berry. Dr Lyons has seen him yesterday and he was switched to SENIOR PROJECT MANAGER status. ADMITTING/DISCHARGE DIAGNOSES: 1. COVID19 infections resulting in acute hypoxic respiratory failure 2. SUNITA on CKD COMPLICATIONS/CHIEF COMPLAINT: Covid 19. HISTORY OF PRESENT ILLNESS/HOSPITAL COURSE: From chart review: 80 year old male for two week history of general malaise and myalgias. Over the last week he has developed progressively worsening shortness of breath. He was admitted for COVID 19 infection and SUNITA on CKD. Patients clinic status worsened and he had acute hypoxic respiratory failure secondary to COVID [address] Lyons had a discussion with his daughter HCP who made the decision for him to be comfort measures only. Patient was desaturating to the 60's whenever he would remove his supplemental oxygen. The next day overnight patient due to respiratory failure due to his COVID 19 infection. DISCHARGE MEDICATIONS: Please see below. ALLERGIES: Please see below. PHYSICAL EXAMINATION ON DISCHARGE: I was not present at time of . Examined by nurse. See nursing notes. LABORATORY DATA: Please see below. DISPOSITION: 20 . TIME SPENT ON DISCHARGE: 25 minutes. Vital Signs/I&Os Vital Signs Date Time Temp Pulse Resp B/P (MAP) Pulse Ox O2 Delivery O2 Flow Rate FiO2 11/03/20 23:38 20 11/03/20 21:00 40.0 100 11/02/20 10:00 79 163/77 (105) 95 HVNI-Vapotherm 11/02/20 08:00 98.8 I&O- Last 24 Hours up to 6 AM 11/04/20 06:00 Intake Total 600 ml Output Total 500 ml Balance 100 ml Microbiology Microbiology 11/01/20 Blood Culture - Preliminary, Resulted No Growth after 72 hours. All specime... 11/01/20 Blood Culture - Preliminary, Resulted No Growth after 72 hours. All specime... 11/01/20 Respiratory Virus Panel (PCR) ([facility]) - Final, Complete SARS-CoV-2 (COVID 19) Human Rhinovirus/Enterovirus Discharge Medications Scheduled Allopurinol (Zyloprim) 300 Mg Tablet, 300 MG PO DAILY, (Reported) Aspirin (Aspirin) 81 Mg Tab.chew, 81 MG PO DAILY, (Reported) Calcitriol (Calcitriol) 0.25 Mcg Capsule, 0.25 MCG PO DAILY, (Reported) Glipizide (Glipizide ER) 5 Mg Tab.er.24, 5 MG PO DAILY, (Reported) Insulin Aspart (Novolog) 100 Unit/1 Ml Cartridge, 20 UNITS SC TID, (Reported) Insulin Detemir (Levemir) 100 Unit/1 Ml Vial, 60 UNITS SC QPM, (Reported) Levothyroxine Sodium (Levothyroxine Sodium) 175 Mcg Tablet, 175 MCG PO DAILY, (Reported) Magnesium Oxide (Magnesium Oxide) 500 Mg Tablet, 500 MG PO BID, (Reported) Minoxidil (Minoxidil) 2.5 Mg Tablet, 2.5 MG PO BID, (Reported) Torsemide (Torsemide) 100 Mg Tablet, 150 MG PO DAILY, (Reported) Allergies Coded Allergies: No Known Allergies (Unverified , 12/13/19) GABRIELA REYNA MD November 04, 2020 16:03
== END 2020-11-04 01:35 | disposition expired | DRG 137 ==
LOC: M ED 09:22 → M ED INP 11:25 → ENRESERV 13:03 → M ICU 13:38 → M 4MAIN 11-02 18:55
PROVIDERS: ADMIT Internal Medicine; ATTEND Internal Medicine
PROC: 3E0333Z Introduction of Anti-inflammatory into Peripheral Vein, Percutaneous Approach (ICD-10-PCS; principal; 2020-11-01)
PROC: XW033E5 Introduction of Remdesivir Anti-infective into Peripheral Vein, Percutaneous Approach, New Technology Group 5 (ICD-10-PCS; 2020-11-01)
DX: U07.1 COVID-19 (principal); J96.01 Acute respiratory failure with hypoxia; J12.82 Pneumonia due to coronavirus disease 2019; N17.9 Acute kidney failure, unspecified; E87.2 Acidosis; N18.5 Chronic kidney disease, stage 5; I24.8 Other forms of acute ischemic heart disease; E11.22 Type 2 diabetes mellitus with diabetic chronic kidney disease; J18.9 Pneumonia, unspecified organism; E11.649 Type 2 diabetes mellitus with hypoglycemia without coma; I50.9 Heart failure, unspecified; N25.81 Secondary hyperparathyroidism of renal origin; Z66 Do not resuscitate; Z51.5 Encounter for palliative care; Z79.82 Long term (current) use of aspirin; Z79.899 Other long term (current) drug therapy; Z79.4 Long term (current) use of insulin; M10.9 Gout, unspecified; J98.11 Atelectasis; R77.8 Other specified abnormalities of plasma proteins; B34.8 Other viral infections of unspecified site